=== PATIENT | female | born 1975 | race African-American/Black ===

== ENCOUNTER 2016-08-18 15:08 | Inpatient (IN) | payer OTHER ==
--- NOTE | ~2016-08-18 | DS ---
Discharge Summary [facility] [address] [place]. [address] NAME: SURESH SMALL : 71 STATUS : DIS IN PAT#: [id number] AGE: 41 ADM/REG DATE : 08/18/16 MR#: [id number] REPORT SERV DATE: 08/23/16 DICTATED BY: KIERAN MELENDEZ DATE: 08/22/16 REPORT STATUS : Draft TRANSCRIBED BY: MODL DATE: 08/22/16 ADMISSION DATE: 08/18/2016 DISCHARGE DATE: 08/22/2016 REASON FOR ADMISSION: Shortness of breath and swelling. HISTORY OF PRESENT ILLNESS: Please refer to Dr. Avitia's history and physical dated 08/18/2016 for complete details regarding the patient's admission. In brief, the patient was admitted to the Hospitalist Service for lower extremity edema concerning for decompensated heart failure. HOSPITAL COURSE: The patient had an uncomplicated hospital course. She presented with shortness of breath and wheezing. The patient takes 80 mg of Lasix twice a day along with metolazone. Dr. Avitia had ordered an echo cardiogram which showed left ventricular size function at 60%, left ventricular diastolic function intact, right ventricular systolic function intact, trace mitral and tricuspid regurg. Her PASP was around 22 mmHg. Given these findings, the volume overload was likely secondary to CKD or obstructive sleep apnea. She was diuresed pretty aggressively with IV Lasix to the point where her creatinine had gone up to 1.88 on 08/21/2016 along with an elevated BUN. At that point, I had started her on normal saline. We are currently awaiting a repeat BMP as the initial BMP was hemolyzed. Her sugars were markedly elevated. Her A1c was found to be around 9.3%. The admission medicine reconciliation did not have her accurate insulin regimen, and once I discussed her insulin regimen, we started her back on her correct dosage of insulin. Her sugars were pretty well controlled. Please note that her dose of insulin Levemir was held the night prior to discharge, which is why she had a blood sugar level of 467 on the day of discharge. The patient was complaining of a cough. A chest x-ray was done on 08/21/2016, which did not show any acute process. Lower extremity Dopplers did not demonstrate any evidence of DVT. If her BMP is improved compared to 08/21/2016, the patient will be discharged home later today in a stable condition. DISCHARGE DIAGNOSES: 1. Volume overload causing lower extremity edema, likely secondary to obstructive sleep apnea and chronic kidney disease. 2. Insulin-dependent diabetes, poorly controlled. 3. Hyponatremia with acute kidney injury secondary to over-diuresis, now resolving. 4. Tobacco abuse. 5. Schizoaffective disorder. 6. Morbid obesity. PROCEDURES: Include chest x-ray, echocardiogram, lower extremity Doppler. If her BMP is not improved, then Dr. Rey will assume care of this patient on 08/23/2016. DISCHARGE MEDICATIONS: Include alprazolam 1 mg daily; benztropine 1 mg twice a day; Wellbutrin 100 mg every morning; Depakote ER 250 mg daily; Lasix 80 mg twice a day, hold for Discharge Summary [address] [address] NAME: SURESH SMALL : 71 STATUS : DIS IN PAT#: [id number] AGE: 41 ADM/REG DATE : 08/18/16 MR#: [id number] REPORT SERV DATE: 08/23/16 DICTATED BY: KIERAN MELENDEZ DATE: 08/22/16 REPORT STATUS : Draft TRANSCRIBED BY: CHEL DATE: 08/22/16 two days; Synthroid 150 mcg every morning; lisinopril 40 mg every morning; Zaroxolyn 5 mg daily; Lyrica 75 mg daily; insulin lispro 30 units three times a day with meals; Percocet p.r.n.; Levemir 20 units twice a day; and Aristada. FOLLOWUP: The patient will follow up with her PCP. This is Dr. Kieran Melendez spending over 30 minutes discharge planning and coordination of care on Ms. Small. SONDRA/CHEL Kieran Melendez MD / [id number] CC: MD Arnulfo Li M.D.
--- NOTE | ~2016-08-18 | DS ---
Discharge Summary [facility] [address] [facility] [address] NAME: SURESH SMALL : 71 STATUS : DIS IN PAT#: [id number] AGE: 41 ADM/REG DATE : 08/18/16 MR#: [id number] REPORT SERV DATE: 08/23/16 DICTATED BY: KIERAN MELENDEZ DATE: 08/22/16 REPORT STATUS : Draft TRANSCRIBED BY: MODYazmin DATE: 08/22/16 ADMISSION DATE: 08/18/2016 DISCHARGE DATE: 08/22/2016 ADDENDUM: Her BMP came back showing an improvement in her creatinine. It is not down to her baseline, but we will give her 1 liter of normal saline bolus and then the patient will be discharged home after her bolus. Please note that the patient does not have CKD as stated in my discharge summary. She developed acute kidney injury secondary to overdiuresis. LUCERO Kieran Melendez MD / [id number] CC: MD Arnulfo Li M.D.
--- NOTE | ~2016-08-18 | HP ---
History And Physical [id number] [place]. [address] NAME: SURESH SMALL : 71 STATUS : ADM IN [facility]#: [id number] AGE: 41 ADM/REG DATE : 08/18/16 MR#: [id number] REPORT SERV DATE: 08/18/16 DICTATED BY: NOBLE HURLEY DATE: 08/18/16 REPORT STATUS : Draft TRANSCRIBED BY: CHEL DATE: 08/18/16 DATE OF ADMISSION: 08/18/2016 CHIEF COMPLAINT: Shortness of breath and leg swelling. HISTORY OF PRESENT ILLNESS: This is a 41-year-old female with medical history significant for congestive heart failure, insulin-treated diabetes mellitus type 2, tobacco abuse, morbid obesity, history of DVTs in 2006, who presented to the hospital with complaints of shortness of breath and bilateral leg swelling. The patient reports that she was in her usual state of health until three days ago when she developed worsening shortness of breath on both exertion and at rest. The patient reports that she noticed while working in her house just performing her regular daily activities, she notes that she becomes significantly short of breath. There is associated generalized body swelling most prominent in the face and the lower extremity. There is also associated four-pillow orthopnea and PND. The patient reports she wakes up multiple times during the night gasping for air that the only thing that improves and makes her feel less anxious when she wakes up at night is to drink water. She reports she has been having indiscriminate amounts of water intake in the last couple of days. There is associated cough, wheezing, and low-grade fevers. The patient also reports that she has been having chronic intermittent chest pains that usually come with exertion and relieved by rest. 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 Huynh. She reports that she had a stress test about a years ago that was negative. At the time of presentation to the hospital, the patient reports no chest pain. She denies any prolonged immobilization, recent travel, or recent surgery. She also denies any palpitation, presyncope, or syncopal episode. PAST MEDICAL HISTORY: 1. Congestive heart failure. 2. Hypertension. 3. Diabetes mellitus. 4. Dyslipidemia. 5. DVT in 2006. 6. Tobacco abuse. 7. Morbid obesity. 8. Schizoaffective disorder. SOCIAL HISTORY: The patient smokes half a pack of cigarettes a day. She has been smoking for the last seven years. She denies drinking alcohol or illicit drug use. The patient presently lives at home with her fiance and she is currently on unemployed and on disability benefit. FAMILY HISTORY: She reports a history of congestive heart failure and coronary artery disease in her father. She reports that dad received multiple coronary stents at the age of 60. She also reports history of diabetes mellitus, hypertension, and CVA in her mother. History And Physical [address] [address] NAME: SURESH SMALL : 71 STATUS : ADM IN [facility]#: [id number] AGE: 41 ADM/REG DATE : 08/18/16 MR#: [id number] REPORT SERV DATE: 08/18/16 DICTATED BY: NOBLE HURLEY DATE: 08/18/16 REPORT STATUS : Draft TRANSCRIBED BY: CHEL DATE: 08/18/16 ALLERGIES: SHE IS ALLERGIC TO PENICILLIN AND AMOXICILLIN. MEDICATIONS: 1. Lasix 80 mg p.o. b.i.d. 2. Insulin lispro 20 units subcu three times a day. 3. Synthroid 150 mcg p.o. every morning. 4. Lisinopril 40 mg p.o. every morning. 5. Metolazone 5 mg p.o. daily. 6. Alprazolam 1 mg tablet p.o. daily. 7. Percocet 10/325 one tablet p.o. q.8 hours. 8. Lyrica 75 mg p.o. daily. 9. Advil 200 mg p.o. daily as needed for pain. 10.Depakote 250 mg p.o. every morning. 11.Wellbutrin SR 100 mg p.o. every morning. 12.Cogentin 1 mg p.o. b.i.d. 13.Risperdal subcu monthly. REVIEW OF SYSTEMS: NEUROLOGIC: She denies any headaches, any seizure-like activities, slurred speech, or weakness of any extremities. HEENT: She denies any sore throat or nasal congestion. She denies any difficulty swallowing or anosmia. RESPIRATORY: As per HPI CARDIOVASCULAR: As per HPI. ABDOMEN: Reports some positive history of loose stools with diarrhea, which occurred in the last three days, which has subsequently improved without any treatment. Denies any abdominal pain. No nausea. No vomiting. GENITOURINARY: Reports stress incontinence, but denies any frequency, urgency, or dysuria. ENDOCRINE: Denies any history of cold intolerance, heat intolerance, or excessive weight gain. HEMATOLOGY: Denies any bleeding from any orifices, easy bruising, or petechia. SKIN: No rash. No hyperpigmentations of the palms of the extremities. MUSCULOSKELETAL: Reports chronic low back pain secondary to disk herniation and also joint pains in the knees due to osteoarthritis. PHYSICAL EXAMINATION: VITAL SIGNS: Blood pressure 179/83 mmHg, pulse 78 beats per minute, temperature 97.6, and saturating at 98% on room air. GENERAL: Appears anxious, had persistent restless movements in keeping with ataxia, not in any respiratory distress. HEENT: Normocephalic, atraumatic. Extraocular muscles intact. Pupils are equal and reactive. Not pale. Not jaundiced. Oral mucosa moist and edentulous. No tonsillar exudate. NECK: JVD with positive hepatojugular reflux. No cervical lymphadenopathy. No thyromegaly. CHEST: Equal expansion. History And Physical [address] [address] NAME: SURESH SMALL : 71 STATUS : ADM IN [facility]#: [id number] AGE: 41 ADM/REG DATE : 08/18/16 MR#: [id number] REPORT SERV DATE: 08/18/16 DICTATED BY: NOBLE HURLEY DATE: 08/18/16 REPORT STATUS : Draft TRANSCRIBED BY: MODL DATE: 08/18/16 LUNGS: Clear to auscultation. No wheezing. No rhonchi. No crackles. ABDOMEN: Obese and bowel sounds normoactive. Nondistended. No palpably enlarged organomegaly. LOWER EXTREMITIES: With bilateral pitting edema +1. Right lower extremity appear bigger than left lower extremity. NEUROLOGIC: Alert oriented x3. Cranial nerves 2 through 12 intact. Strength in all extremities 5/5. Reflexes normal. LABORATORY DATA: Chemistries: Serum sodium 137, potassium 3.9, chloride 106, bicarb 24, creatinine 0.87, BUN 9, glucose 392. Magnesium 1.7. Calcium 8.3. Troponin is 0.07. BNP 80.9. Hematology: WBC 4.3, hemoglobin 13, hematocrit 37.3, and platelets 173. PT 13.6, INR 1.1. Chest x-ray, impression: Borderline enlarged cardiac silhouette accentuated by shallow inspiration and large patient size. No acute cardiopulmonary abnormalities. EKG: Sinus rhythm, ventricular rate 74, no ST-segment elevation. No T-wave changes. SUMMARY: This is a 41-year-old female with medical history of congestive heart failure, who presents to the hospital with shortness of breath and bilateral leg swellings concerning for acute decompensated heart failure. ASSESSMENT: 1. Elevated troponin. 2. Acute decompensated heart failure. 3. Schizoaffective disorder. 4. Diabetes mellitus type 2. 5. Morbid obesity. 6. Stable angina. ASSESSMENT AND PLAN: 1. Acute decompensated heart failure with preserved EF. The patient's last echocardiogram shows left ventricular ejection fraction of 60 (2013). The patient has significant bilateral lower extremity swelling with shortness of breath. Low BNP likely related to the patient's morbid obese size at this time. We will continue Lasix 80 mg q.12 hours and monitor patient's urine output. Also, I will order a repeat echocardiogram. 2. Elevated troponin of 0.07. At the time of my evaluation, the patient has no chest pain. EKG did not show any ST-segment abnormalities. Etiology of elevated troponin likely related to acute decompensated heart failure. We will do serial troponin on this patient. Monitor closely. 3. Dyspnea with reported wheezing. She had significant relief after DuoNeb was given in the ER and IV steroid. Given extensive history of tobacco use, the patient may have an undiagnosed chronic obstructive pulmonary disease, which may be concerning for possible chronic obstructive pulmonary disease exacerbation. I will continue the patient's steroids and DuoNebs at this time and continue to monitor. 4. Bilateral lower leg swelling. Right lower extremity appears larger than the left. I History And Physical [address] [place]. [address] NAME: SURESH SMALL : 71 STATUS : ADM IN [facility]#: [id number] AGE: 41 ADM/REG DATE : 08/18/16 MR#: [id number] REPORT SERV DATE: 08/18/16 DICTATED BY: XAVINOBLE STEWART DATE: 08/18/16 REPORT STATUS : Draft TRANSCRIBED BY: CHEL DATE: 08/18/16 will order bilateral Doppler of the lower extremities to rule out deep venous thrombosis. 5. Schizoaffective disorder. I will restart the patient's home dose of antipsychotic medications. 6. Diabetes mellitus, insulin treated. I would recommence the patient on subcu insulin throughout the course of this admission. 7. Morbid obesity. We will place the patient on low-calorie diet. 8. History of stable angina. We will continue to monitor the patient closely throughout the course of this admission for any significant chest pain and also recommence the patient's home dose beta galdino at this time. 9. Code status: Full code. 10.Admission status: Inpatient. 11.Deep venous thrombosis prophylaxis, on heparin subcu. 12.This patient will be under the care of the hospitalist team during the course of this admission. JONATHON/CHEL Noble Hurley MD / [id number] CC: MD Arnulfo Cota M.D. Joseph Sledge III, M.D.
[2016-08-18 14:00] LABS: BASOPHILS 0.5 %; BASOPHILS ABSOLUTE 0.02 10/3/uL (0.0-0.16); EOSINOPHILS 5.6 %; EOSINOPHILS ABSOLUTE 0.24 10/3/uL (0.0-0.53); ER CBC TAT 0 Hrs 05 Mins; HEMATOCRIT 37.3 % (36.0-48.0); LYMPHOCYTES 29.7 %; LYMPHOCYTES ABSOLUTE 1.27 10/3/uL (0.67-4.30); MEAN CORPUS HGB CONC 34.9 g/dL (32.0-36.0); MEAN CORPUSCULAR HEMOGLOB 30.5 pg (26.0-34.0); MEAN PLATELET VOLUME 11.5 fL (9.2-13.0); MONOCYTES 6.8 %; MONOCYTES ABSOLUTE 0.29 10/3/uL (0.21-1.20); NEUTROPHILS 57.4 %; NEUTROPHILS ABSOLUTE 2.46 10/3/uL (2.02-8.40); PLATELET COUNT 173 10/3/uL (150-400); RBC DISTRIBUTION WIDTH 13.9 % (12.0-16.0); RED CELL COUNT 4.26 10/6/uL (4.0-5.6); WHITE BLOOD CELLS 4.3 10/3/uL (4.5-10.5)
[2016-08-18 14:01] LABS: MANUAL DIFF NO %; MEAN CORPUSCULAR VOLUME 87.6 fL (80-100)
[2016-08-18 14:07] LABS: INTERNATIONAL NORMAL RATI 1.1 UNITS (-); PARTIAL THROMBO TIME 32.6 SEC (22.5-37.2); PROTIME (NOT ORD) 13.6 SEC (12.0-14.5)
[2016-08-18 14:16] LABS: BUN (BLOOD UREA NITROGEN) 9 MG/DL (6-23); CALCIUM, SERUM 8.3 MG/DL (8.5-10.4); CHEST PAIN PROFILE TAT 0 Hrs 21 Mins; CHLORIDE, SERUM 106 MMOL/L (96-112); CO2 (CARBON DIOXIDE) 24 MMOL/L (24-34); CREATININE 0.87 MG/DL (0.55-1.02); GFR AFRICAN AMERICAN 95 ML/MIN (>=60); GFR NON AFRICAN AMERICAN 82 ML/MIN (>=60); GLUCOSE, SERUM 392 MG/DL (60-99); POTASSIUM, SERUM 3.9 MMOL/L (3.5-5.3); SODIUM, SERUM 137 MMOL/L (135-148); TROPONIN I 0.07 NG/ML (<0.05)
[2016-08-18 14:41] LABS: INFLUENZA A SCREEN NEGATIVE (NEGATIVE); INFLUENZA B SCREEN NEGATIVE (NEGATIVE)
[~2016-08-18 15:08] MED LIST: ABILIFY20 MG PO; ACCUNEB INH; ADVICOR PO; AMARYL4 PO; ASAB PO; CELEXA20 PO; CITALOPRAM; DEPAKOT500 PO; DEPAKOTE; GLIMEPIRIDE; GLUCOPHAGE1000 MG PO; H5 PO; HALOPERIDOL20 MG PO; HUMALOG SC; IBU800 PO; INVEGA6 MG PO; K-TABS10 MEQ PO; KLOR-CON M2020 MEQ PO; KLOR-CON-2525 MEQ PO; L80 PO; LANTUS SC; LOP25 PO; LOP50 PO; LOTREL; LOTREL1 CA4 PO; METOPROLOL; NOVOLOG SC; PERCOCET; PERCOCET1 TA4 PO; POTASSIUM; PRIN20 PO; PROAIR HFA INH; PROVENTSOL INH; RANITIDINE; TEG200 PO; TRAZODONE; VENTOLIN HFA INH; XALAT OPH; XANAX1 MG PO; Z5 PO; ZANTAC150 MG PO; ZAROXOLYN PO; [UNRECOGNIZED DRUG - OTHER]; [UNRECOGNIZED DRUG - REMARK]; [UNRECOGNIZED DRUG - REMARK]
[2016-08-18] MEDS ORDERED: SYN.15 PO (15:09)
[2016-08-18] MEDS ORDERED: LISINOPRIL40 MG PO (15:09)
[2016-08-18] MEDS ORDERED: Z5 PO (15:13)
[2016-08-18] MEDS ORDERED: XANAX1 MG PO (15:13)
[2016-08-18] MEDS ORDERED: LYRICA75 PO (15:14)
[2016-08-18] MEDS ORDERED: PERCOCET 10/3251 TAB PO (15:14)
[2016-08-18] MEDS ORDERED: ADVIL PO (15:17)
[2016-08-18] MEDS ORDERED: DEPAK250ER PO (15:30)
[2016-08-18] MEDS ORDERED: COGEN1 PO (15:30)
[2016-08-18] MEDS ORDERED: WELLSR100 PO (15:30)
[2016-08-18] MEDS ORDERED: ARISTADA SQ (15:31)
[2016-08-18 19:19] LABS: FREE T4 1.04 NG/DL (0.76-1.46); PHOSPHORUS, SERUM 2.6 MG/DL (2.5-4.5)
[2016-08-19 05:47] LABS: ASCORBIC ACID (UR NOT ORDER) NEG (NEG); BILIRUBIN, URINE NEGATIVE (NEG); KETONE, URINE NEGATIVE (NEG); LEUKOCYTE ESTERASE(NOT OR NEG (NEG); WBC (NOT ORDERED) (RFLEX) < 1 (0-5)
[2016-08-19 06:39] LABS: BASOPHILS 0.1 %; BASOPHILS ABSOLUTE 0.01 10/3/uL (0.0-0.16); EOSINOPHILS 0 %; HEMATOCRIT 37.3 % (36.0-48.0); HEMOGLOBIN 13.2 g/dL (12.0-16.0); IMMATURE GRANULOCYTES 0.1 %; IMMATURE GRANULOCYTES ABSOLUTE 0.01 10/3/uL (0.0-0.11); LYMPHOCYTES 11.7 %; LYMPHOCYTES ABSOLUTE 0.94 10/3/uL (0.67-4.30); MEAN CORPUS HGB CONC 35.4 g/dL (32.0-36.0); MEAN CORPUSCULAR HEMOGLOB 30.6 pg (26.0-34.0); MEAN CORPUSCULAR VOLUME 86.5 fL (80-100); MEAN PLATELET VOLUME 12.1 fL (9.2-13.0); MONOCYTES 3.1 %; MONOCYTES ABSOLUTE 0.25 10/3/uL (0.21-1.20); NEUTROPHILS ABSOLUTE 6.84 10/3/uL (2.02-8.40); PLATELET COUNT 219 10/3/uL (150-400); RBC DISTRIBUTION WIDTH 13.8 % (12.0-16.0); RED CELL COUNT 4.31 10/6/uL (4.0-5.6)
[2016-08-19 06:44] LABS: WHITE BLOOD CELLS 8.1 10/3/uL (4.5-10.5)
[2016-08-19 06:45] LABS: MANUAL DIFF NO %
[2016-08-19 07:04] LABS: ALBUMIN 3.4 G/DL (3.5-5.0); CALCIUM, SERUM 8.8 MG/DL (8.5-10.4); CHLORIDE, SERUM 104 MMOL/L (96-112); CO2 (CARBON DIOXIDE) 23 MMOL/L (24-34); CREATININE 1.06 MG/DL (0.55-1.02); GFR AFRICAN AMERICAN 74 ML/MIN (>=60); GFR NON AFRICAN AMERICAN 64 ML/MIN (>=60); GLUCOSE, SERUM 316 MG/DL (60-99); PHOSPHORUS, SERUM 2.7 MG/DL (2.5-4.5); SODIUM, SERUM 136 MMOL/L (135-148)
[2016-08-19 07:07] LABS: BUN (BLOOD UREA NITROGEN) 17 MG/DL (6-23); TROPONIN I 0.05 NG/ML (<0.05)
[2016-08-20 07:05] LABS: CALCIUM, SERUM 9.5 MG/DL (8.5-10.4); CHLORIDE, SERUM 95 MMOL/L (96-112); CO2 (CARBON DIOXIDE) 24 MMOL/L (24-34); CREATININE 1.17 MG/DL (0.55-1.02); GFR AFRICAN AMERICAN 66 ML/MIN (>=60); GFR NON AFRICAN AMERICAN 57 ML/MIN (>=60); POTASSIUM, SERUM 4.4 MMOL/L (3.5-5.3); SODIUM, SERUM 133 MMOL/L (135-148)
[2016-08-20 07:13] LABS: BUN (BLOOD UREA NITROGEN) 27 MG/DL (6-23); GLUCOSE, SERUM 493 MG/DL (60-99); PHOSPHORUS, SERUM 4.2 MG/DL (2.5-4.5)
[2016-08-21 09:50] LABS: CALCIUM, SERUM 8.6 MG/DL (8.5-10.4); CHLORIDE, SERUM 93 MMOL/L (96-112); CO2 (CARBON DIOXIDE) 25 MMOL/L (24-34); POTASSIUM, SERUM 3.6 MMOL/L (3.5-5.3); SODIUM, SERUM 133 MMOL/L (135-148)
[2016-08-21 09:53] LABS: BUN (BLOOD UREA NITROGEN) 49 MG/DL (6-23); CREATININE 1.88 MG/DL (0.55-1.02); GFR AFRICAN AMERICAN 37 ML/MIN (>=60); GFR NON AFRICAN AMERICAN 32 ML/MIN (>=60); GLUCOSE, SERUM 324 MG/DL (60-99)
[2016-08-22 10:02] LABS: BUN (BLOOD UREA NITROGEN) 47 MG/DL (6-23); CALCIUM, SERUM 8.4 MG/DL (8.5-10.4); CHLORIDE, SERUM 96 MMOL/L (96-112); CO2 (CARBON DIOXIDE) 26 MMOL/L (24-34); GFR AFRICAN AMERICAN 45 ML/MIN (>=60); GFR NON AFRICAN AMERICAN 39 ML/MIN (>=60); SODIUM, SERUM 132 MMOL/L (135-148)
[2016-08-22 10:05] LABS: GLUCOSE, SERUM 429 MG/DL (60-99)
[2016-08-22 10:06] LABS: POTASSIUM, SERUM 4.6 MMOL/L (3.5-5.3)
[2016-08-22] MEDS ORDERED: HUMALOG (14:44)
[2016-08-22] MEDS ORDERED: LANTUS (14:46)
[2016-12-12] MEDS ORDERED: KLOR-CON M2020 MEQ PO (18:12)
[2016-12-12] MEDS ORDERED: ALEVE220 MG PO (18:13)
[2016-12-12] MEDS ORDERED: VISINE TEARS15 ML OPH (18:14)
[2016-12-12] MEDS ORDERED: SYMBICORT 160/41 INH INH (18:14)
[2016-12-12] MEDS ORDERED: XANAX1 MG PO (18:15)
[2016-12-12] MEDS ORDERED: COGEN1 PO (18:16)
[2016-12-12] MEDS ORDERED: WELLSR100 PO (18:17)
[2016-12-12] MEDS ORDERED: DEPAKOT250 PO (18:21)
[2016-12-12] MEDS ORDERED: L80 PO (18:21)
[2016-12-12] MEDS ORDERED: HUMALOG SC (18:22)
[2016-12-12] MEDS ORDERED: SYN.15 PO (18:23)
[2016-12-12] MEDS ORDERED: LISINOPRIL40 MG PO (18:24)
[2016-12-12] MEDS ORDERED: Z5 PO (18:25)
[2016-12-12] MEDS ORDERED: PERCOCET 10/3251 TAB PO (18:26)
[2016-12-12] MEDS ORDERED: ARIPIPRAZOLE LAUROXIL 882 MG/3.2 ML SC (18:36)
[2016-12-12] MEDS ORDERED: SPIRO50 PO (18:37)
[2016-12-15] MEDS ORDERED: LEVEMFLXPN SC (14:35)
== END 2016-08-22 18:05 | disposition home or self-care (01) | DRG 292 ==
LOC: ER 15:08 → 7NO 16:54
PROVIDERS: Hospitalist; Internal Medicine
DX: I11.0 Hypertensive heart disease with heart failure (principal); J44.1 Chronic obstructive pulmonary disease with (acute) exacerbation; N17.9 Acute kidney failure, unspecified; E87.1 Hypo-osmolality and hyponatremia; Z68.43 Body mass index [BMI] 50.0-59.9, adult; E66.01 Morbid (severe) obesity due to excess calories; I50.31 Acute diastolic (congestive) heart failure; E11.9 Type 2 diabetes mellitus without complications; F25.9 Schizoaffective disorder, unspecified; I20.8 Other forms of angina pectoris; E03.9 Hypothyroidism, unspecified; F17.210 Nicotine dependence, cigarettes, uncomplicated; Z86.718 Personal history of other venous thrombosis and embolism; Z79.4 Long term (current) use of insulin; Z79.891 Long term (current) use of opiate analgesic; Z79.899 Other long term (current) drug therapy; Z88.0 Allergy status to penicillin; Z88.1 Allergy status to other antibiotic agents; G47.33 Obstructive sleep apnea (adult) (pediatric); Z23 Encounter for immunization
CPT/HCPCS: 71010; 71020; 80048; 80069; 81001; 82962; 83036; 83735; 83880; 84100; 84439; 84443; 84484; 85025; 85610; 85730; 87040; 87804; 90686; 93005; 93306; 93970; 94640; 96374; 96375; 97161-GP; 99285; A9270-GY; G0008; J2920; J2930